=== PATIENT | female | born 1965 | race Caucasian/White ===

== ENCOUNTER 2022-05-10 16:55 | Observation (INO) ==
--- NOTE | 2022-05-10 17:42 | Emergency Department Note ---
History of Present Illness General Chief complaint: Skin Problem Stated complaint: SURGERY 05/09/22, STITCH CONCERN ABDOMEN Time Seen by Provider: 05/10/22 17:12 History of Present Illness Maximum Pain Intensity: 4 This is a 56-year-old female that presents to the emergency department via private vehicle accompanied by family with complaints of "surgery yesterday, cholecystectomy, bleeding". The patient notes that she underwent laparoscopic cholecystectomy yesterday at [facility] by Dr. Hogue. Patient notes that she was doing well. Today she was eating some popcorn and began to choke. In regard to the choking she noted this resolved quickly but during this she noted some increased abdominal musculature tensing of which she believes potentially opened a wound around her umbilicus. She notes 05/06 abdominal pain. She noted bleeding from the umbilicus wound of which has now stopped. She states that she reached out to the [facility] clinic and was r ecommended to come here for further evaluation and management. Patient denies any fevers or chills. Current pain 10. Home Medications Medication Instructions Recorded Confirmed Type albuterol sulfate 90 mcg/actuation 2 puff inhalation Q4H PRN 05/10/22 05/10/22 History aerosol inhaler Shortness Of Breath atorvastatin 10 mg tablet 10 mg PO DAILY 05/10/22 05/10/22 History cholecalciferol (vitamin D3) 125 125 mcg PO DAILY 05/10/22 05/10/22 History mcg (5,000 unit) tablet (Vitamin D3) duloxetine 60 mg capsule,delayed 60 mg PO DAILY 05/10/22 05/10/22 History release fluticasone propionate 50 2 spray intranasal DAILY 05/10/22 05/10/22 History mcg/actuation nasal spray,suspension gabapentin 100 mg capsule 100 mg PO TID 05/10/22 05/10/22 History glipizide 10 mg tablet, extended 10 mg PO DAILY 05/10/22 05/10/22 History release 24 hr linaclotide 72 mcg capsule 72 mcg PO DAILY 05/10/22 05/10/22 History (Linzess) losartan 25 mg tablet 25 mg PO DAILY 05/10/22 05/10/22 History metformin 1,000 mg tablet 1,000 mg PO BID 05/10/22 05/10/22 History omeprazole 40 mg capsule,delayed 40 mg PO DAILY 05/10/22 05/10/22 History release oxycodone-acetaminophen 5 mg-325 1 tab PO BID PRN Severe Pain 05/10/22 05/10/22 History mg tablet (Scale Score 7-10) Allergies Allergy/AdvReac Type Severity Reaction Status Date / Time azithromycin Allergy Severe facial Verified 05/24/19 17:27 edema levofloxacin Allergy Severe airway Verified 09/12/15 19:00 edema,hives Penicillins Allergy Severe edema Verified 09/12/15 19:00 airway,hives latex Allergy Mild RASH Verified 09/12/15 19:00 Past Med/Surg History Medical History Depression Diabetic neuropathy Hyperlipidemia Hypertension Type 2 diabetes mellitus Uterine prolapse (02/24/14) Surgical History History of hysterectomy Hx laparoscopic cholecystectomy Family History Other Diabetes Social History Smoking Status: Former smoker Smoking End Date: Quit 4 months ago; Second Hand Exposure: Yes; Do You Dip or Chew Tobacco: No; Hx Alcohol Use: No Hx Substance Use: No Preferred Language: Vietnamese Communication Ability: Effective Drivers License Examiner Required: No Beliefs That Will Affect Care: None Current Living Situation: Spouse Other Information That Helps Us Care for You: No Feels Safe at Home: Yes Safety Concerns: Feels Safe At This Time Assistive Devices: None Review of Systems A total of 10 systems reviewed and were otherwise negative Physical Exam Vital Signs Vital Signs - 24 hr 05/10/22 16:58 Temperature 36.6 C Temperature Source Temporal Artery Scan Pulse Rate 89 Respiratory Rate 18 Respiratory Effort / Characteristics Non-Labored Spontaneous Respiratory Depth Normal Respiratory Pattern Regular Blood Pressure 153/82 H Blood Pressure Mean 105 Blood Pressure Position Sitting Pulse Oximetry 99 Oxygen Delivery Method Room Air Sepsis Recent Fever Within 48 Hours No Sepsis New/Unexplained Change in Mental Status No Sepsis Action Taken by Nursing No Action Required VITAL SIGNS - Vital signs and nursing notes were reviewed. Stable and afebrile. GENERAL -56-year-old female appearing her stated age who is in no acute distress. Communicates well with provider and answers questions appropriately. SKIN -there are bandages overlying the abdominal incision regions. There is only blood on 1 of these dressings and that is overlying the umbilicus. Inspection of the surgical incision reveals a nondehisced wound that is well- appearing at this time. No active bleeding. No purulence. No hematoma. No bruising. HEAD - NC/AT. LUNGS - Chest wall symmetric without accessory muscle use, intercostals retractions, or central cyanosis. Normal vesicular breath sounds CTA B/L. No wheezes, rales, or rhonchi appreciated. CARDIAC - RRR with S1/S2. No murmur, rubs, or gallops appreciated. ABDOMEN - Abdominal contour normal without pulsations or visible masses. No guarding or rigidity. Skin as above. EXTREMITIES - No clubbing or peripheral cyanosis. NEUROLOGIC - Cranial nerves grossly intact. PSYCH - A&O, and cooperates fully with examiner. Pt is very pleasant and interacts well with examiner. Course Administered Medications Gabapentin (Gabapentin 100 Mg Cap) 100 mg PO TID [facility] Stop: 06/09/22 20:59 Last Admin: 05/10/22 22:06 Dose: 100 mg Documented By: NICOLE Insulin Aspart (Insulin Aspart Per Unit) 0 units SC Q6 [facility] Stop: 06/09/22 21:14 Last Admin: 05/10/22 22:06 Dose: 5 units Documented By: NICOLE Co-signed By: LIDIA Insulin Glargine (Lantus Per Unit Charge) 10 units SQ HS [facility] Stop: 06/09/22 22:14 Last Admin: 05/10/22 22:14 Dose: 10 units Documented By: NICOLE Co-signed By: LIDIA Oxycodone/Acetaminophen (Oxycodone/Acetaminophen 5mg/325mg Tab) 1 tab PO BID PRN PRN Reason: Severe Pain (Scale Score 7-10) Stop: 05/24/22 20:11 Last Admin: 05/10/22 20:33 Dose: 1 tab Documented By: NICOLE Discontinued Medications Insulin Glargine (Lantus Per Unit Charge) 5 units SQ HS [facility] Stop: 06/09/22 21:04 Last Admin: 05/10/22 22:17 Dose: Not Given Documented By: NICOLE Medical Decision Making Laboratory Data 05/10/22 17:40 05/10/22 17:40 Lab Results 05/10/22 05/10/22 Range/Units 17:40 17:40 WBC 18.72 H (4.8-10.8) K/ul RBC 4.56 (3.93-5.22) M/uL Hgb 13.0 (12.0-16.0) g/dl Hct 38.9 (34.1-44.9) % MCV 85.3 (80.0-100.0) fL MCH 28.5 (25.0-34.0) pg MCHC 33.4 (32.0-36.0) g/dL RDW Std Deviation 36.1 L (36.4-46.3) fL RDW Coeff of David 11.8 (11.5-14.5) % Plt Count 262 (130-400) K/uL MPV 10.6 (9.4-12.3) fL Sodium 139 (136-145) mmol/L Potassium 3.9 (3.5-5.1) mmol/L Chloride 102 (98-107) mmol/L Carbon Dioxide 28 (21-32) mmol/L Anion Gap 9 (3-11) BUN 13 (6-23) mg/dl Creatinine 0.71 (0.6-1.2) mg/dl Est Cr Clr Drug Dosing 72.0 ml/min Est GFR ( Amer) 111.9 ml/min Est GFR (Non-Af Amer) 96.6 ml/min BUN/Creatinine Ratio 18.3 (10-20) Glucose 196 H (70-99(Fasting)) mg/dl Calcium 10.0 (8.5-10.1) mg/dl Total Bilirubin 0.7 (0.2-1.0) mg/dl AST 16 (13-39) U/L ALT 35 (7-52) U/L Alkaline Phosphatase 116 H (34-104) U/L Total Protein 8.1 (6.0-8.3) gm/dl Albumin 4.1 (3.4-5.0) gm/dl Globulin 4.0 (2.5-4.0) gm/dl Albumin/Globulin Ratio 1.0 (0.9-2) MDM Narrative Patient was seen and evaluated as above in room D04. Review was performed of triage nursing notes and vital signs. After obtaining a thorough history and physical examination the above work up was performed. Patient presents to us today with bleeding from her periumbilical surgical incision that occurred after choking today. In regard to the choking this appeared to be a minor event with no residual issues regarding her airway however she did note some bleeding from the abdominal incision following the choking episode. Options of care were discussed with the patient. IV access was established. Labs were drawn. I discussed the presentation with the on-call general surgeon, Dr. Gu. He came to evaluate the patient. Recommendation was to observe the patient overnight in the hospital. I believe this is reasonable. Case then discussed with the [facility] hospitalist. Dr. Gu did change the patient's dressings. Patient amenable to plan of care. Labs reveal leukocytosis 18.72. No anemia. Hyperglycemia 196. COVID test negative. Please refer to further documentation regarding her stay. In the evaluation and treatment of this patient the following differential diagnoses were entertained: Postop bleeding, wound dehiscence, infection, among others. Impression & Plan Bleeding from wound Discharge Plan Visit Data Chief Complaint: Skin Problem Stated Complaint: SURGERY 05/09/22, STITCH CONCERN ABDOMEN ED Provider: Andre Aguilar ED Midlevel Provider: Christiano Mc Discharge Problem: Bleeding from wound Patient Disposition: Admitted As Inpatient Condition: Good Discharge Instructions Interventions: ED Discharge Assessment Last Done: 05/10/22 19:55
[2022-05-10 17:58] LABS: Hematocrit (blood only) 38.9 % (34.1-44.9); Mean Corpuscular Hemoglobin 28.5 pg (25.0-34.0); Mean Corpuscular Hgb Conc 33.4 g/dL (32.0-36.0); Mean Corpuscular Volume 85.3 fL (80.0-100.0); Mean Platelet Volume 10.6 fL (9.4-12.3); Platelet Count 262 K/uL (130-400); RDW Coefficient of Variation 11.8 % (11.5-14.5); RDW Standard Deviation 36.1 fL (36.4-46.3); Red Blood Count 4.56 M/uL (3.93-5.22); White Blood Count 18.72 K/ul (4.8-10.8)
[2022-05-10 18:20] LABS: Albumin Level 4.1 gm/dl (3.4-5.0); BUN Creatinine Ratio 18.3 (10-20); Bilirubin,Total 0.7 mg/dl (0.2-1.0); Est GFR (African American) 111.9 ml/min; Est GFR (Non-African American) 96.6 ml/min; Potassium 3.9 mmol/L (3.5-5.1); Total Protein 8.1 gm/dl (6.0-8.3)
--- NOTE | 2022-05-10 18:37 | Surgery Consultation ---
Date of Consultation May 10, 2022 Assessment & Plan (1) Bleeding from wound: Patient with no evidence of active bleeding at the present time or significant hematoma I would limit her activity and monitor her in the hospital overnight Her dressing has been changed I do think she could have clear liquids and then likely n.p.o. after midnight She can be up to the bathroom Change dressing with gauze and Medipore tape as needed History of Present Illness History of Present Illness 56-year-old female who underwent laparoscopic cholecystectomy yesterday at [facility] by Dr. Hogue presenting to the emergency room with bleeding from her umbilical wound site She apparently was eating popcorn and partially inhaled some causing significant coughing and then bleeding from her wound site at the umbilicus-she said she may have had bleeding even prior to that Currently she is stable and her H&H is stable She is on significant medications specifically for diabetes Allergies Allergy/AdvReac Type Severity Reaction Status Date / Time azithromycin Allergy Severe facial Verified 05/24/19 17:27 edema levofloxacin Allergy Severe airway Verified 09/12/15 19:00 edema,hives Penicillins Allergy Severe edema Verified 09/12/15 19:00 airway,hives latex Allergy Mild RASH Verified 09/12/15 19:00 Patient History Social History Smoking Status: Never smoker Preferred Language: Sri Lankan Feels Safe at Home: Yes Review of Systems Review of Systems: All systems reviewed & are unremarkable except as noted in HPI & below Physical Exam Physical Exam: I remove the dressing that was placed at home and she does have minimal bleeding at the present time and minimal blood no clot on the dressing There is no evidence of hematoma or mass in the wound Her incision is approximated well Constitutional: well nourished; no acute distress Eyes: + anicteric sclerae Respiratory: normal respiratory effort; no respiratory distress Cardiovascular: Rate/Rhythm: regular rhythm Gastrointestinal (Abdomen): See above Musculoskeletal: Head/Neck/Chest: head atraumatic Skin: no rashes, warm and dry Neurologic: awake Psychiatric: Orientation: alert Results & Data ([facility]) Vital Signs (Past 12 Hours) Vital Signs Temp Pulse Resp BP Pulse Ox O2 Del Method 05/10/22 16:58 36.6 C 89 18 153/82 H 99 Room Air PG Care Time/CCT Total # of Minutes Spent Total Time Spent with Patient: Total time spent is greater than 50% in coordination of care (as documented) at patient's floor/unit and/or counseling patient: Coding Level of Care Code 54193 INT INP/OBS CARE MIN Diagnoses Bleeding from wound T14.8XXA
--- NOTE | 2022-05-10 18:37 | History & Physical Report ---
Date of Service May 10, 2022 Assessment & Plan (1) Bleeding from wound: Plan: This is a 56-year-old female with PMH of type 2 diabetes with peripheral neuropathy, dyslipidemia, asthma, depression and recent outpatient cholecystectomy at [facility] on 05/09/2022 who presents with postop incisional bleeding. POD #1 s/p laparoscopic cholecystectomy- had a significant coughing episode at home today that caused bleeding at umbilical laparoscopic incision site VSS, hgb stable at 13, WBC 18 Evaluated by surgery in ED -no evidence of acute bleeding at present time or significant hematoma but recommends limiting activity overnight, clear liquids and then n.p.o. after midnight No antibiotics needed at this time, per surgery Dressing changed. Can change as needed with gauze and Medipore tape on the floor Continue as needed home Percocet and Tylenol for pain control Repeat CBC in a.m. (2) Type 2 diabetes mellitus: Plan: Hold home agents SSI while in-patient BSG AC HS or Q6H while NPO (3) Hypertension: Plan: Continue losartan (4) Hyperlipidemia: Plan: Continue statin (5) Depression: Plan: Continue SNRI (6) Diabetic neuropathy: Plan: Continue gabapentin, Percocet twice daily as needed pain DVT Ppx: SCDs Code status: FULL PCP: Ramya Dispo: Observation med/surg Patient seen in collaboration with Dr. Kimble. Please see addendum. History of Present Illness Chief Complaint: Postop incisional bleeding Primary Care Provider: NO PCP This is a 56-year-old female with PMH of type 2 diabetes with peripheral neuropathy, dyslipidemia, asthma, depression and recent outpatient cholecystectomy at [facility] on 05/09/2022 who presents with postop incisional bleeding. Underwent laparoscopic surgery yesterday and did not have any issues. Was watching a movie this afternoon and choked on a popcorn kernel, causing a spasm of coughing that irritated incision. When she was in the shower later this afternoon she noted "gushing" bleeding at incisional site. Bleeding stopped when she sad down and applied pressure but came to ED for further evaluation. Denies any post-op fever, chills, nausea or vomiting. Abdominal pain at umbilical incision site passing flatus post-operatively. Denies lightheadedness, chest pain, shortness of breath, dysuria or diarrhea. Allergies Allergy/AdvReac Type Severity Reaction Status Date / Time azithromycin Allergy Severe facial Verified 05/24/19 17:27 edema levofloxacin Allergy Severe airway Verified 09/12/15 19:00 edema,hives Penicillins Allergy Severe edema Verified 09/12/15 19:00 airway,hives latex Allergy Mild RASH Verified 09/12/15 19:00 Home Medications Medication Instructions Recorded Confirmed Type albuterol sulfate 90 mcg/actuation 2 puff inhalation Q4H PRN 05/10/22 05/10/22 History aerosol inhaler Shortness Of Breath atorvastatin 10 mg tablet 10 mg PO DAILY 05/10/22 05/10/22 History cholecalciferol (vitamin D3) 125 125 mcg PO DAILY 05/10/22 05/10/22 History mcg (5,000 unit) tablet (Vitamin D3) duloxetine 60 mg capsule,delayed 60 mg PO DAILY 05/10/22 05/10/22 History release fluticasone propionate 50 2 spray intranasal DAILY 05/10/22 05/10/22 History mcg/actuation nasal spray,suspension gabapentin 100 mg capsule 100 mg PO TID 05/10/22 05/10/22 History glipizide 10 mg tablet, extended 10 mg PO DAILY 05/10/22 05/10/22 History release 24 hr linaclotide 72 mcg capsule 72 mcg PO DAILY 05/10/22 05/10/22 History (Linzess) losartan 25 mg tablet 25 mg PO DAILY 05/10/22 05/10/22 History metformin 1,000 mg tablet 1,000 mg PO BID 05/10/22 05/10/22 History omeprazole 40 mg capsule,delayed 40 mg PO DAILY 05/10/22 05/10/22 History release oxycodone-acetaminophen 5 mg-325 1 tab PO BID PRN Severe Pain 05/10/22 05/10/22 History mg tablet (Scale Score 7-10) Past Med/Surg History Medical History (Updated 05/10/22 @ 19:14 by Kelly Jurado PA-C) Depression Diabetic neuropathy Hyperlipidemia Hypertension Type 2 diabetes mellitus Uterine prolapse (02/24/14) Surgical History History of hysterectomy Hx laparoscopic cholecystectomy Family History Other Diabetes Social History Smoking Status: Former smoker Smoking End Date: Quit 4 months ago; Hx Alcohol Use: No Hx Substance Use: No Preferred Language: Swedish Feels Safe at Home: Yes Review of Systems Review of Systems: At least ten systems reviewed and negative except as noted in the HPI. Physical Exam Physical Exam: Please see Dr. Kimble's addendum for physical exam. Results & Data Results & Data ([facility]) Vital Signs (Past 12 Hours) Vital Signs Temp Pulse Resp BP Pulse Ox O2 Del Method 05/10/22 16:58 36.6 C 89 18 153/82 H 99 Room Air Laboratory Results Short CBC 05/10/22 Range/Units 17:40 WBC 18.72 H (4.8-10.8) K/ul Hgb 13.0 (12.0-16.0) g/dl Hct 38.9 (34.1-44.9) % Plt Count 262 (130-400) K/uL BMP 05/10/22 17:40 Sodium 139 Potassium 3.9 Chloride 102 Carbon Dioxide 28 BUN 13 Creatinine 0.71 Glucose 196 H Calcium 10.0 Liver Function 05/10/22 Range/Units 17:40 Total Bilirubin 0.7 (0.2-1.0) mg/dl AST 16 (13-39) U/L ALT 35 (7-52) U/L Alkaline Phosphatase 116 H (34-104) U/L Albumin 4.1 (3.4-5.0) gm/dl Code Status & VTE Plan VTE Prophylaxis Plan VTE Prophylaxis will be ordered: Yes Supervising Physician Co-Signing Physician Notes Pt is a 56 y/o F with hx of DMII, Asthma, Depression, vertigo, recent lapar oscopic cholecystectomy (05/10) admitted for bleeding from the incision site after pt had a coughing episode -per pt it was bleeding a lot initially but resolved when she arrived to the ER -Dr. Gu examined the pt and changed the dressing. Recommended overnight observation with NPO after MN PE: NAD, well developed Lungs: CTA, no wheezing or crackles Cardiac: Normal S1/S2, no murmur Abd: ND, soft, incision appeared to be intact, no acute bleeding or discharge MSk: No LE edema Psych: AAOx3, normal affect A/P: Bleeding from the surgical site: resolved -s/p laparoscopic cholecystectomy on 05/09 - dressing was changed in the ER - wbc elevated but no s/s possible infection ----abd exam is benign: no need for CT abd -per surgery: NPO after MN & clear liquid for the night -will get CBC tomorrow Other chronic conditions: plan as above Agree with A/P by Kelly Jurado PA-C
[2022-05-10] MEDS ORDERED: ALBUTEROL HFA 8 GM INHALER INH PRN (20:12)
[2022-05-10] MEDS ORDERED: ONDANSETRON INJ 2 MG/ML 2 ML VIAL IV PRN (20:12)
[2022-05-10] MEDS ORDERED: POLYETHYLENE (MIRALAX) 17 GM PACK PO PRN (20:12)
[2022-05-10] MEDS ORDERED: oxyCODONE/ACETAMINOPHEN 5mg/325mg TAB PO PRN (20:12)
[2022-05-10] MEDS ORDERED: ACETAMINOPHEN 325 MG TAB PO PRN (20:12)
[2022-05-10] MEDS ORDERED: CARBOHYDRATES FOR HYPOGLYCEMIA PO PRN (21:00)
[2022-05-10] MEDS ORDERED: DEXTROSE 50% 50 ML SYRINGE IV PRN (21:00)
[2022-05-10] MEDS ORDERED: GLUCOSE 40% GEL 15 GM TUBE PO PRN (21:00)
[2022-05-10] MEDS ORDERED: GLUCOSE 10 TAB/TUBE PO PRN (21:00)
[2022-05-10] MEDS ORDERED: GLUCAGON FOR INJ 1 MG VIAL SQ PRN (21:00)
[2022-05-10] MEDS: LANTUS PER UNIT CHARGE SQ SCH ×2 (22:06→22:17)
[2022-05-10] MEDS: INSULIN ASPART PER UNIT SC SCH (22:06)
[2022-05-10] MEDS: GABAPENTIN 100 MG CAP PO SCH (22:06)
[2022-05-10] MEDS ORDERED: LANTUS PER UNIT CHARGE SQ SCH (22:15)
[2022-05-11] MEDS: INSULIN ASPART PER UNIT SC SCH (06:19)
--- NOTE | 2022-05-11 07:02 | Surgery Progress Note ---
Date of Service May 11, 2022 Assessment & Plan (1) Bleeding from wound: Plan: Patient up to the bathroom overnight No bleeding from wound dressing is dry Will discharge home later this morning with dressing supplies Have patient follow-up with Dr. Hogue on the phone Thursday or Thursday Admission and Anticipated Discharge Date Admission Date: May 10, 2022 Results & Data ([facility]) Vital Signs (Past 12 Hours) Vital Signs Temp Pulse Resp BP Pulse Ox O2 Del Method 05/10/22 20:30 36.3 C L 62 18 154/81 H 98 Room Air 05/10/22 19:55 Room Air PG Care Time/CCT Total # of Minutes Spent Total Time Spent with Patient: Total time spent is greater than 50% in coordination of care (as documented) at patient's floor/unit and/or counseling patient: Coding Level of Care Code 13642 SUB INP/OBS CARE 1/25MIN Diagnoses Bleeding from wound T14.8XXA
[2022-05-11 07:18] LABS: Hematocrit (blood only) 35.8 % (34.1-44.9); Hemoglobin 11.9 g/dl (12.0-16.0); Mean Corpuscular Hemoglobin 28.3 pg (25.0-34.0); Mean Corpuscular Hgb Conc 33.2 g/dL (32.0-36.0); Mean Platelet Volume 10.7 fL (9.4-12.3); Platelet Count 247 K/uL (130-400); RDW Coefficient of Variation 11.8 % (11.5-14.5); RDW Standard Deviation 35.9 fL (36.4-46.3); Red Blood Count 4.21 M/uL (3.93-5.22); White Blood Count 12.58 K/ul (4.8-10.8)
[2022-05-11 07:38] LABS: Albumin Globulin Ratio 1.1 (0.9-2); Albumin Level 3.8 gm/dl (3.4-5.0); BUN Creatinine Ratio 16.1 (10-20); Bilirubin,Total 0.7 mg/dl (0.2-1.0); Calcium 9.2 mg/dl (8.5-10.1); Creatinine Clr Calc Pharmacy 82.6 ml/min; Est GFR (African American) 118.5 ml/min; Est GFR (Non-African American) 102.2 ml/min; Globulin 3.5 gm/dl (2.5-4.0); Potassium 3.9 mmol/L (3.5-5.1); Total Protein 7.3 gm/dl (6.0-8.3)
[2022-05-11] MEDS ORDERED: ATORVASTATIN 10 MG TAB PO SCH (09:00)
[2022-05-11] MEDS ORDERED: DULoxetine HCL 60 MG CAP PO SCH (09:00)
[2022-05-11] MEDS ORDERED: LOSARTAN POTASSIUM 25 MG TAB PO SCH (09:00)
[2022-05-11] MEDS ORDERED: FLUTICASONE PROPIONATE NA SPR 16 GM BTL NAE SCH (09:00)
[2022-05-11] MEDS ORDERED: PANTOprazole 40 MG TAB PO SCH (09:00)
[2022-05-11] MEDS ORDERED: CHOLECALCIFEROL 5,000 UNITS 125 MCG TAB PO SCH (09:00)
[2022-05-11] MEDS: GABAPENTIN 100 MG CAP PO SCH (10:00)
--- NOTE | 2022-05-12 08:00 | Discharge Summary (DS) ---
DATE OF ADMISSION: 05/10/2022. DATE OF DISCHARGE: 05/11/2022. PRINCIPAL DIAGNOSIS: Wound bleeding. HISTORY OF PRESENT ILLNESS: The patient is a 56-year-old female who underwent laparoscopic cholecyst ectomy on 05/09/2022 at [facility] by Dr. Jonas. She had a coughing episode on 05/10/2022 and began to have some bleeding from her wound, presenting to the Emergency Room. Because of the potentia l bleeding, we did keep her in the hospital overnight. She has had no bleeding and her dressing is d ry and I feel she can be discharged home today. She will follow up with Dr. Jonas. Job ID: [id number]
== END 2022-05-11 10:40 | disposition home or self-care (01) ==
LOC: ED 16:55 → 3N 16:55 → SUATTDRO 18:36 → 3N 19:55